=== PATIENT | male | born 1970 | race Caucasian/White ===

== ENCOUNTER 2021-02-12 11:34 | Emergency (ER) | payer OTHER, SELFPAY ==
[2021-02-12 11:45] VITALS: BP 138/89; PULSE 72; RESP 19; TEMP 36.6; O2SAT 100; BMI 31.5
--- NOTE | 2021-02-12 12:08 | HMH.EDUTC ---
[facility] [place] Clinical Impression: Eye problem Disposition: Home, Self-Care Condition on Discharge: Good Instructions: DI for Foreign Body in the Eye Additional Instructions: Go straight to Dr Aguillon office Return if needed Straight to ER if any life threatening symptoms Referrals: Radha Mccartney [Primary Care Provider] - [facility] [Other] Time of Disposition: 12:10 Medical Decision Making - Daniele Inquiry Pt receiving controlled substance: No Daniele was queried for this patient: No Vital Signs: 02/12/21 11:45 02/12/21 12:09 Temperature 97.8 F 97.8 F Temperature Source Oral Pulse Rate 72 Pulse Rate [Right Brachial] 72 Respiratory Rate 19 19 Blood Pressure 138/89 Blood Pressure [Right Arm] 138/89 Blood Pressure Mean [Right Arm] 105 Blood Pressure Source [Right Arm] Automatic Cuff Blood Pressure Position [Right Arm] Sitting 02 Sat by Pulse Oximetry 100 Oxygen Delivery Method Room Air - Physician Consults Physician Consulted: Alicia [facility] Time: 12:10 Reason -: Opthalmology Eval/Care Comment/Response: Spoke with [facility] and informed them of patient complaint and report of feeling like there is something stuck under his eyelid and they advised for him to come straight to the Clinic for eye exam and further treatment and patient agreed [facility] [place] - General Stated complaint: [id number] object in Rt eye Time Seen by Provider: 02/12/21 12:08 Mode of Arrival: Ambulatory Source of Information: Patient Limitations: No Limitations Description of Symptoms (Recalled from Triage Doc. by RN): PATIENT STATES THAT SHE WAS CHANGING CEILING TILES THIS MORNING AND SOMETHING FELL INTO HER LEFT EYE HEENT Symptoms (Recalled from RN notes): Yes Resp Symptoms (Recalled from RN notes): No Skin Symptoms (Recalled from RN notes): No MS Symptoms (Recalled from RN notes): No Functional Status (Recalled from RN notes): WNL - History of Present Illness Provider Complaint: Patient state that he was changing some ceiling tiles this morning when something fell into his left eye States that he flushed his eye but feels like there is something stuck under his eyelid and when he blinks it hurts - Related Data Home Medications Medication Instructions Recorded Confirmed Benazepril HCl 20 mg PO DAILY 02/12/21 02/12/21 Simvastatin [Zocor 40mg] 40 mg PO HS 02/12/21 02/12/21 carvediloL [Carvedilol 25mg Tab] 25 mg PO BID 02/12/21 02/12/21 hydroCHLOROthiazide [HCTZ 25mg 25 mg PO DAILY 02/12/21 02/12/21 tab] Allergies Allergy/AdvReac Type Severity Reaction Status Date / Time No Known Allergies Allergy Verified 02/12/21 11:56 - Worker's Comp Is this a Worker's Comp case?: No [facility] History - Hepatitis A Screen Drug use history?: No High risk sexual behaviors?: No History of sexually transmitted infection?: No Currently employed?: No Childcare worker?: No Do you have indoor plumbing?: Yes Do you have electricity?: Yes Attestation statement:: This patient has been screened for Hepatitis A risk factors. I have reviewed the patient's past medical history: Yes - Social History Alcohol Intake: never Occupational Status: other ROS Obtained: Yes All systems reviewed & no additional complaints, Yes Systems reviewed as appropriate & no additional complaints - Eyes Eyes: Reports system reviewed and no additional complaints, except as docu, Reports irritation, Reports sensitivity to light, Reports eye pain, Reports other (Something fell in left eye feels like something is under his left eyelid ) Physical Exam - General General appearance: alert, in no apparent distress - Eye Eye exam: Present: discharge, other (Redness, watering and patient reports feeling of FB under left eyelid no obvious FB seen) - Respiratory Respiratory exam: Present: normal lung sounds bilaterally. Absent: respiratory distress - Cardiovascular Cardiovascular exam: Present: regular rate, normal
[2021-02-12 12:09] VITALS: BP 138/89; PULSE 72; RESP 19; TEMP 36.6; O2SAT 100
== END 2021-02-12 12:11 | disposition home or self-care (01) ==
PROVIDERS: Emergency Provider Nurse Practitioner; PCP Nurse Practitioner Family
DX: T15.12XA Foreign body in conjunctival sac, left eye, initial encounter (principal); E78.5 Hyperlipidemia, unspecified; Z79.899 Other long term (current) drug therapy
CPT/HCPCS: 99202; G0463